=== PATIENT | female | born 1995 | race Caucasian/White ===

== ENCOUNTER 2019-11-24 11:26 | Emergency (ER) | payer OTHER ==
[~2019-11-24] VITALS: Ht 167.6 cm; Wt 85.3 kg
[2019-11-24 11:30] VITALS: Ht 167.6 cm; Wt 85.3 kg
[2019-11-24 12:10] LABS: microscopic required? YES; urine erythrocyte NEGATIVE (NEGATIVE)
[2019-11-24 12:17] LABS: BASOPHIL % 0.4 % (0-2); PLATELET COUNT 247 x10^3mcL (130-400); RED CELL DISTRIBUTION WIDTH 13.6 % (11.5-14.5)
[2019-11-24 12:37] LABS: CALCIUM 8.7 mg/dL (8.5-10.1); CARBON DIOXIDE 23.9 mmol/L (21-32); CHLORIDE SERUM 103 mmol/L (98-107); CREATININE SERUM 0.9 mg/dL (0.6-1.0); GFR1 > 60 mL/min; GLUCOSE SERUM 109 mg/dL (74-106); POTASSIUM SERUM 4.2 mmol/L (3.5-5.1); SODIUM SERUM 141 mmol/L (136-145)
[2019-11-24 12:42] LABS: ALBUMIN 4.1 g/dL (3.4-5.0); ALKALINE PHOSPHATASE 63 U/L (46-116); ALT/SGPT 20 U/L (14-59); AST/SGOT 14 U/L (15-37); BILIRUBIN TOTAL 0.7 mg/dL (0.20-1.00); LIPASE 71 IU/L (73-393); TOTAL PROTEIN, SERUM 7.9 g/dL (6.4-8.2)
[2019-11-24 12:48] LABS: AMPHETAMINE QUAL UR NONE DETECTED (See below)
[2019-11-24 14:30] VITALS: BP 104/50
== END 2019-11-24 14:30 | disposition home or self-care (01) ==
LOC: ED 11:26
PROVIDERS: Emergency Medicine
DX: K29.20 Alcoholic gastritis without bleeding (principal)
CPT/HCPCS: J2060; J2405; J3490; J7030; Q0092

== ENCOUNTER 2020-02-11 08:06 | Emergency (ER) | payer OTHER ==
[~2020-02-11] VITALS: Ht 170.2 cm; Wt 83.0 kg
[2020-02-11 08:11] VITALS: BP 137/79; Ht 170.2 cm; Wt 83.0 kg
== END 2020-02-11 10:23 | disposition home or self-care (01) ==
LOC: ED 08:06
DX: F41.9 Anxiety disorder, unspecified (principal); F32.9 Major depressive disorder, single episode, unspecified; G47.00 Insomnia, unspecified

== ENCOUNTER 2020-02-12 08:35 | Emergency (ER) | payer OTHER ==
[~2020-02-12] VITALS: Ht 167.6 cm; Wt 80.7 kg
[2020-02-12 08:48] VITALS: Ht 167.6 cm; Wt 80.7 kg
[2020-02-12 09:37] LABS: BASOPHIL % 0.1 % (0-2); PLATELET COUNT 315 x10^3mcL (130-400); RED CELL DISTRIBUTION WIDTH 13.3 % (11.5-14.5)
[2020-02-12 09:51] LABS: CALCIUM 9.1 mg/dL (8.5-10.1); CARBON DIOXIDE 24.3 mmol/L (21-32); CHLORIDE SERUM 102 mmol/L (98-107); CREATININE SERUM 0.7 mg/dL (0.6-1.0); GFR1 > 60 mL/min; GLUCOSE SERUM 101 mg/dL (74-106); POTASSIUM SERUM 3.4 mmol/L (3.5-5.1); SODIUM SERUM 137 mmol/L (136-145)
[2020-02-12 09:56] LABS: ALBUMIN 4.1 g/dL (3.4-5.0); ALKALINE PHOSPHATASE 79 U/L (46-116); ALT/SGPT 17 U/L (14-59); AST/SGOT 14 U/L (15-37); BILIRUBIN TOTAL 1.4 mg/dL (0.20-1.00); LIPASE 77 IU/L (73-393); TOTAL PROTEIN, SERUM 7.9 g/dL (6.4-8.2)
[2020-02-12 11:36] VITALS: BP 111/57
== END 2020-02-12 11:36 | disposition left against medical advice (07) ==
LOC: ED 08:35
PROVIDERS: Emergency Medicine
DX: R11.10 Vomiting, unspecified (principal); F12.90 Cannabis use, unspecified, uncomplicated; F41.9 Anxiety disorder, unspecified
CPT/HCPCS: J1630; J2060; J7030; Q0092

== ENCOUNTER 2020-02-13 02:27 | Emergency (ER) | payer OTHER ==
[~2020-02-13] VITALS: Ht 170.2 cm; Wt 81.2 kg
[2020-02-13 02:35] VITALS: Ht 170.2 cm; Wt 81.2 kg
[2020-02-13 03:52] LABS: BASOPHIL % 1.8 % (0-2); PLATELET COUNT 315 x10^3mcL (130-400)
[2020-02-13 04:05] LABS: CALCIUM 8.2 mg/dL (8.5-10.1); CARBON DIOXIDE 22.8 mmol/L (21-32); CHLORIDE SERUM 102 mmol/L (98-107); CREATININE SERUM 0.7 mg/dL (0.6-1.0); GFR1 > 60 mL/min; GLUCOSE SERUM 92 mg/dL (74-106); POTASSIUM SERUM 3.2 mmol/L (3.5-5.1); SODIUM SERUM 138 mmol/L (136-145)
[2020-02-13 04:09] LABS: ALBUMIN 3.8 g/dL (3.4-5.0); ALKALINE PHOSPHATASE 78 U/L (46-116); ALT/SGPT 20 U/L (14-59); AST/SGOT 22 U/L (15-37); BILIRUBIN TOTAL 1.26 mg/dL (0.20-1.00); TOTAL PROTEIN, SERUM 7.8 g/dL (6.4-8.2)
[2020-02-13 04:21] LABS: FREE T4 1.41 ng/dL (0.76-1.46); T4(THYROXINE) 9.9 ug/dL (4.7-13.3)
[2020-02-13 04:31] LABS: AMPHETAMINE QUAL UR NONE DETECTED (See below)
[2020-02-13 05:28] VITALS: BP 115/72
[2020-02-13 05:32] LABS: T3 TOTAL 1.35 ng/mL
== END 2020-02-13 05:28 | disposition home or self-care (01) ==
LOC: ED 02:27
PROVIDERS: Emergency Medicine
DX: F41.9 Anxiety disorder, unspecified (principal); G47.00 Insomnia, unspecified
CPT/HCPCS: 84439